=== PATIENT | male | born 1970 | race African-American/Black ===

== ENCOUNTER 2019-12-05 15:02 | Emergency (ER) | payer SELFPAY ==
--- NOTE | 2019-12-05 15:52 | PDOC ---
Rapid Medical Evaluation Medical Evaluation: 12/05/19 15:36 I have performed a brief in-person evaluation of this patient. The patient presents with a chief complaint of: L nasal burning sensation w/ pressure x 1 month Pertinent physical exam findings:stable I have ordered the following:nothing The patient will proceed to the ED for further evaluation Discharge Disposition - Diagnosis Nasal burning - Referrals - Patient Instructions - Post Discharge Activity
[2019-12-05 16:00] VITALS: BP 122/62; PULSE 98; TEMP 97; BMI 28.5
--- NOTE | 2019-12-05 16:21 | PDOC ---
History of Present Illness - General Chief Complaint: Pain Stated Complaint: NOSE PROBLEM Time Seen by Provider: 12/05/19 15:49 - History of Present Illness Initial Comments: 12/05/19 16:19 49-year-old male without comorbidities presents for sinus pressure x2 months Past History - Past Medical History Home Medications: Ambulatory Orders Amox-Tr/K Cl [Augmentin - 875Mg Tablet] 1 tab PO BID #20 tablet 12/05/19 Budesonide [Rhinocort Allergy] 1 spray NS ONCE #1 spray.pump 12/05/19 Cetirizine HCl/Pseudoephedrine [Zyrtec-D Tablet] 1 each PO DAILY #30 tab.er.12h 12/05/19 - Psycho Social/Smoking Cessation Hx Smoking History: Never smoked Information on smoking cessation initiated: No Hx Alcohol Use: No Drug/Substance Use Hx: No Review of Systems - Review of Systems Constitutional: No: Fever HEENTM: Yes: See HPI *Physical Exam - Vital Signs Last Vital Signs Temp Pulse Resp BP Pulse Ox 97 F L 98 H 18 122/62 100 12/05/19 15:40 12/05/19 15:40 12/05/19 15:40 12/05/19 15:40 12/05/19 15:40 - Physical Exam 12/05/19 16:20 GENERAL: The patient is awake, alert, and fully oriented, in no acute distress. HEAD: Normal with no signs of trauma. EYES: sclera anicteric, conjunctiva clear. ENT: Ears normal tympanic membranes normal oropharynx clear uvula midline; tender maxillary and frontal sinuses NECK: Normal range of motion LUNGS: Breath sounds equal, clear to auscultation bilaterally. No wheezes, and no crackles. HEART: S1 and S2 without murmur, rub or gallop. ABDOMEN: Soft, nontender, normoactive bowel sounds. No guarding, no rebound. No masses. EXTREMITIES: Normal range of motion, no edema. No clubbing or cyanosis. No co rds, erythema, or tenderness. NEUROLOGICAL: Cranial nerves II through XII grossly intact. PSYCH: Normal mood, normal affect. SKIN: Warm, Dry, normal turgor, no rashes or lesions noted. Medical Decision Making - Medical Decision Making 12/05/19 16:20 We will treat for bacterial sinusitis. Follow-up with ENT I have reviewed the pathophysiology with the patient. They are in agreement with the treatment plan all questions were answered to their satisfaction. Understanding for follow-up without fail was also conveyed to the patient. Again they are in agreement. Discharge - Discharge Information Problems reviewed: Yes Clinical Impression/Diagnosis: Nasal burning, Bacterial sinusitis Condition: Stable Disposition: HOME - Admission No - Additional Discharge Information Prescriptions: Amox-Tr/K Cl [Augmentin - 875Mg Tablet] 1 tab PO BID #20 tablet Budesonide [Rhinocort Allergy] 1 spray NS ONCE #1 spray.pump - Follow up/Referral Referrals: Sudhakar Sehth MD [Staff Physician] - - Patient Discharge Instructions Additional Instructions: Please take the antibiotics and use the nasal spray as directed. Return to the emergency room for worsening symptoms. Without fail follow-up with ear nose and throat doctor in 1 to 2 days for further evaluation and treatment options. Please take the antibiotics as directed and finish the entire course. - Post Discharge Activity
== END 2019-12-05 16:27 | disposition home or self-care (01) ==
LOC: JER 15:02 → JERFT 15:02
DX: J32.8 Other chronic sinusitis (principal); B96.89 Other specified bacterial agents as the cause of diseases classified elsewhere
CPT/HCPCS: 99282-25